=== PATIENT | female | born 1975 | race Two or more races ===

== ENCOUNTER 2017-03-28 22:05 | Emergency (ER) | payer OTHER ==
[~2017-03-28] VITALS: Ht 160 cm; Wt 70.0 kg
[2017-03-28 22:10] VITALS: BP 130/80
[2017-03-28] MEDS ORDERED: ONDANSETRON ODT 4 MG PO ONE (22:30)
[2017-03-28 22:45] LABS: HEMATOCRIT 40.1 % (34.6-47.8); HEMOGLOBIN 13.6 g/dL (11.7-16.4)
[2017-03-28 22:52] LABS: BLOOD UREA NITROGEN 11 mg/dL (7-18)
[2017-03-28] MEDS ORDERED: ONDANSETRON ODT 4 MG ONE (22:52)
== END 2017-03-28 23:07 | disposition home or self-care (01) ==
LOC: ED 23:04
DX: R11.0 Nausea (principal)
CPT/HCPCS: 36415; 80048; 82375; 84703; 85025; 99284; Q0162

== ENCOUNTER 2018-11-18 08:20 | Outpatient (CLI) | payer OTHER | END 2018-11-18 23:59 | disposition home or self-care (01) | LOC: CFH 08:20 | PROVIDERS: ATTEND Obstetrics & Gynecology | DX: N60.02 Solitary cyst of left breast (principal); N60.01 Solitary cyst of right breast; N63.10 Unspecified lump in the right breast, unspecified quadrant; N63.20 Unspecified lump in the left breast, unspecified quadrant | CPT/HCPCS: 76642; 77066; G0279 ==

== ENCOUNTER → 2020-05-01 | Outpatient (CLI) | payer OTHER ==
[~2020-05-01] MED LIST: GADOTERATE 7.5 MMOL/15 ML SYR ONE
== END | disposition home or self-care (01) ==
LOC: CFH 09:14
PROVIDERS: ATTEND Obstetrics & Gynecology
DX: N60.01 Solitary cyst of right breast (principal); R92.2 Inconclusive mammogram; N63.10 Unspecified lump in the right breast, unspecified quadrant; N85.2 Hypertrophy of uterus; N94.89 Other specified conditions associated with female genital organs and menstrual cycle; Z80.3 Family history of malignant neoplasm of breast
CPT/HCPCS: 72197; 76642; 77061; 77066; A9575; G0279